=== PATIENT | female | born 1970 | race Two or more races ===

== ENCOUNTER 2024-07-20 16:24 | Emergency (ER) | payer MEDICAID, SELFPAY ==
--- NOTE | 2024-07-20 17:12 | PD.EDRME ---
Rapid Medical Screening Exam RME Arrival date/time: 07/20/24 16:24 53-year-old female with no known medical history presents to the emergency room with a chief complaint of hives to her face. Patient states this has been going on for the last 3 days and causing her a lot of itchiness. Patient is also complaining of dysuria and abdominal cramping. I have greeted and performed a focused initial assessment of this patient. A comprehensive ED assessment and evaluation of the patient, analysis of all test results, and completion of the medical decision making process will be conducted by additional ED providers. Chief Complaint: Eye Problems Vital signs reviewed by provider: Yes
[2024-07-20 17:19] VITALS: BP 132/80; PULSE 87; RESP 18; TEMP 37; O2SAT 95
[2024-07-20] MEDS: DiphenhydrAMINE ELIX 25 MG/10 ML UDC PO (17:19)
[2024-07-20] MEDS: DEXAMETHASONE SOD PHOS INJ 10 MG/ML VIAL PO (17:19)
[2024-07-20] MEDS: FAMOTIDINE 20 MG TABLET PO (17:20)
[2024-07-20 17:37] LABS: Basophils % (Auto) 0 % (0-2.5); Eosinophils # (Auto) 0.1 Thou/mm3 (0.0-0.5); Eosinophils % (Auto) 1 % (0-10); Hematocrit 40.1 % (36.0-46.0); Hemoglobin 13.4 g/dL (12.0-16.0); Immature Granulocytes % (Auto) 1 % (0-0); Immature Granulocytes Auto 0.05 Thou/mm3 (0.00-0.00); Lymphocytes # (Auto) 4.1 Thou/mm3 (1.0-4.8); Lymphocytes % (Auto) 40 % (10-50); Mean Corpuscular HGB Conc 33.4 g/dl (31.0-37.0); Mean Corpuscular Hemoglobin 30.8 pg (25.0-35.0); Mean Corpuscular Volume 92 fL (80-100); Monocytes # (Auto) 0.6 Thou/mm3 (0.0-0.8); Monocytes % (Auto) 6 % (0-12); Neutrophils # (Auto) 5.5 Thou/mm3 (1.8-7.7); Neutrophils % (Auto) 54 % (37-80); Nucleated Red Blood Cell % 0 /100 WBC (0); Platelet Count 251 Thou/mm3 (140-440); RDW Standard Deviation 43.3 fL (36.4-46.3); Red Blood Count 4.35 Miln/mm3 (4.00-5.20); White Blood Count 10.3 Thou/mm3 (3.6-11.0)
[2024-07-20 17:55] LABS: Alanine Aminotransferase 43 U/L (10-49); Albumin, Serum 4.5 gm/dL (3.5-5.0); Albumin/Globulin Ratio 1.6 (1.2-2.2); Alkaline Phosphatase 112 U/L (46-116); Anion Gap 8 (7-16); Aspartate Amino Transferase 28 U/L (0-34); BUN/Creatinine Ratio 18 Ratio (12-20); Bilirubin,Total 0.3 mg/dL (0.3-1.2); Blood Urea Nitrogen 11 mg/dL (9-23); Calcium 9.3 mg/dL (8.3-10.6); Calcium (Corrected) 9.3 mg/dL (8.5-10.1); Carbon Dioxide 27.3 mMol/L (20.0-31.0); Chloride 106 mMol/L (98-107); Creatinine (Component) 0.6 mg/dL (0.6-1.3); Globulin 2.8 gm/dL (2.3-3.5); Glucose 115 mg/dL (74-106); Osmolality,Calculated 281 (275-295); Potassium 3.9 mMol/L (3.4-5.1); Sodium 141 mMol/L (136-145); Total Protein 7.3 gm/dL (5.7-8.2); eGFR > 60 See Note
[2024-07-20 18:47] LABS: Collection Type, Urine Clean Catch
[2024-07-20 19:23] LABS: Bacteria,Urine Rare; Bilirubin,Urine Negative (Negative); Blood,Urine Negative (Negative); Clarity,Urine Clear (Clear/Hazy); Color,Urine Colorless (Lt Yel-Yel); Glucose, Urine Negative (Negative); Ketones,Urine Negative (Negative); Leukocyte Esterase,Urine Negative (Negative); Nitrite,Urine Negative (Negative); Protein,Urine Negative (Neg - Trace); RBC,Urine 2 /hpf (0-3); Squamous Epithelial Cell,Urine < 1 /hpf (0-5); Urobilinogen,Urine Negative mg/dL (0.0-1.0); WBC,Urine 1 /hpf (0-5)
[2024-07-20 19:32] VITALS: BP 137/81; PULSE 88; RESP 16; TEMP 36.8; O2SAT 98
--- NOTE | 2024-07-20 20:33 | EDNOTE_ITS ---
<Statement entered by Patricia Bejarano MD - 07/22/24 01:47> As co-signing physician, I was present and available for consult prn. I concur with the plan and care as documented by the midlevel provider. ED General RME/HPI General Chief complaint: Eye Problems Stated complaint: I FEEL SOMETHING IN MY MOUTH AND EYES Time Seen by Provider: 07/20/24 20:32 Arrival date/time: 07/20/24 16:24 CC: Itching HPI ongoing since May on the right side of the face anterior surface of the forearms and the legs. Every day it occurs intermittent, has been seen by her PCP given Benadryl Benadryl relieves the itch and a red rash . When Benadryl wears out rash and itch return. Patient denies fever chills shortness of breath difficulty breathing no other complaints RME / HPI RME / HPI narrative: 07/20/24 16:24 53-year-old female with no known medical history presents to the emergency room with a chief complaint of hives to her face. Patient states this has been going on for the last 3 days and causing her a lot of itchiness. Patient is also complaining of dysuria and abdominal cramping. I have greeted and performed a focused initial assessment of this patient. A comprehensive ED assessment and evaluation of the patient, analysis of all test results, and completion of the medical decision making process will be conducted by additional ED providers. Related Data Allergies Allergy/AdvReac Type Severity Reaction Status Date / Time No Known Allergies Allergy Verified 07/20/24 16:28 Review of Systems Review of Systems Narrative Review of Systems: GEN: No fever, no chills, no weight loss EYES: No discharge, no visual changes, no pain HEENT: No ear pain, no congestion, no sore throat PULM: No shortness of breath, no cough, no congestion CV: No chest pain, no dyspnea on exertion, no palpitations GI: No nausea, no vomiting, no diarrhea, no pain, no constipation : No frequency, no urgency, no dysuria MUSC/SKEL: No joint pain, no back pain SKIN: + rash PSYCH: No hallucinations, no depression HEME/LYMPH: No easy bleeding or bruising tendencies NEURO: No weakness, no headache Past Medical History Social History SMOKING STATUS: Never smoker ED Exam Narrative Physical exam: [General: Not in any acute distress Head normocephalic HEENT: Within acceptable limits Neck is supple nontender Chest equal chest rise nontender to palpation Respiratory: Clear to auscultation no wheezes crackles or rubs CV: Rate rhythm is regular no murmurs rubs or clicks Abdomen is distended secondary to body habitus soft nontender no masses positive bowel sounds all 4 quadrants Back: No CVA tenderness no spinous process tenderness from cervical spine thoracic and lumbar spine Skin: No rash, no hives no erythema no bulla. Skin is intact no petechiae rash induration ulceration or crepitus Extremities: Moving all extremity against resistance cap refill less than 2 seconds neurosensory intact Neuro: Awake alert oriented x3 Glascow coma 15 no focal deficits] Course Quality Measures none Orders Category Date Time Status CBC Stat Lab 07/20/24 17:24 Completed CMP [Comprehensive Metabolic Panel] Stat Lab 07/20/24 17:24 Completed UA [Urinalysis] Stat Lab 07/20/24 18:37 Completed Dexamethasone Inj [Decadron Inj] Med 07/20/24 17:12 Discontinued 10 mg PO X1 ONE DiphenhydrAMINE [Benadryl] Med 07/20/24 17:12 Discontinued 25 mg PO X1 ONE Famotidine [Pepcid] Med 07/20/24 17:12 Discontinued 20 mg PO X1 ONE Vital Signs Vital signs: Vital Signs Temperature 98.6 F 07/20/24 17:19 Pulse Rate 87 07/20/24 17:19 Respiratory Rate 18 07/20/24 17:19 Blood Pressure 132/80 H 07/20/24 17:19 Pulse Oximetry (%) 95 07/20/24 17:19 Oxygen Delivery Method Room Air 07/20/24 17:19 [facility] Patient data External records reviewed:: [facility] previous records Clinical information provided by:: patient Social determinants that could affect healthcare access:: none Patient has the following chronic illnesses:: None How is presenting disease/condition affected by chronic disease/condition?: u neffected by Evaluation data The following diagnostics were reviewed and interpreted by me:: lab results Lab and/or radiology exams considered but not ordered:: CBC shows no acute leukocytosis anemia thrombocytopenia CMP shows no acute electrolyte imbalance renal impairment transaminitis or T. bili elevation. Interpretation Summary: Not sure what the cause of this issue is that is intermittently nothing is visible at the time of this exam if the patient was given Benadryl in the waiting room prior to arrival. Patient advised to follow-up with primary care doctor and referred to climatology professor. Medications Medications considered but not ordered:: None Medication administrations:: Medication Administration History Discontinued Medications Dexamethasone Sodium Phosphate (Dexamethasone Sod Phos Inj 10 Mg/Ml Vial) 10 mg PO X1 ONE Stop: 07/20/24 17:13 Last Admin: 07/20/24 17:19 Dose: 10 mg Documented By: HENRIQUE Diphenhydramine HCl (Diphenhydramine Elix 25 Mg/10 Ml Udc) 25 mg PO X1 ONE Stop: 07/20/24 17:13 Last Admin: 07/20/24 17:19 Dose: 25 mg Documented By: HENRIQUE Famotidine (Famotidine 20 Mg Tablet) 20 mg PO X1 ONE Stop: 07/20/24 17:13 Last Admin: 07/20/24 17:20 Dose: 20 mg Documented By: HENRIQUE None Consultations Consultation(s) initiated? (list below): No Diagnosis Differential Diagnosis ED Complaint MDM: Urticaria contact dermatitis somatizations Most likely diagnosis given after review of the tests above:: Itch, rash Admission Indicated Admission indicated?: not indicated Explain why admission is indicated or not indicated:: Stable for outpatient follow-up Admission Request Was there a request for admission?: No Disposition Plan Disposition Plan: Discharge Discharge Attestation Discharge Attestation: The patient and all family members were given an opportunity to ask questions and understood the discharge instructions. Discharge instructions specifically effects, indications for sooner follow up or return to the emergency department, and the expected course of current diagnosis. Patient condition: Stable Medical Decision Making Differential Diagnosis Differential Diagnosis: Urticaria contact dermatitis somatizations Lab Data 07/20/24 17:24 07/20/24 17:24 Labs: Lab Results 07/20/24 07/20/24 Range/Units 17:24 18:37 WBC 10.3 (3.6-11.0) Thou/mm3 RBC 4.35 (4.00-5.20) Miln/mm3 Hgb 13.4 (12.0-16.0) g/dL Hct 40.1 (36.0-46.0) % MCV 92 (80-100) fL MCH 30.8 (25.0-35.0) pg MCHC 33.4 (31.0-37.0) g/dl RDW Std Deviation 43.3 (36.4-46.3) fL Plt Count 251 (140-440) Thou/mm3 Neut % (Auto) 54 (37-80) % Lymph % (Auto) 40 (10-50) % [place] % (Auto) 6 (0-12) % Eos % (Auto) 1 (0-10) % Baso % (Auto) 0 (0-2.5) % Neut # (Auto) 5.5 (1.8-7.7) Thou/mm3 Lymph # (Auto) 4.1 (1.0-4.8) Thou/mm3 [place] # (Auto) 0.6 (0.0-0.8) Thou/mm3 Eos # (Auto) 0.1 (0.0-0.5) Thou/mm3 Baso # (Auto) 0.0 (0.0-0.2) Thou/mm3 Immature Gran # (Auto) 0.05 H (0.00-0.00) Thou/mm3 Absolute Nucleated RBC 0.00 (0.00-0.00) Thou/mm3 Immature Gran % 1 H (0-0) % Nucleated RBC % 0 (0) /100 WBC Sodium 141 (136-145) mMol/L Potassium 3.9 (3.4-5.1) mMol/L Chloride 106 (98-107) mMol/L Carbon Dioxide 27.3 (20.0-31.0) mMol/L Anion Gap 8 (7-16) BUN 11 (9-23) mg/dL Creatinine 0.6 (0.6-1.3) mg/dL Estim Creat Clear Calc Not Performed. eGFR > 60 (60 - ) See Note BUN/Creatinine Ratio 18 (12-20) Ratio Glucose 115 H (74-106) mg/dL Calculated Osmolality 281 (275-295) Calcium 9.3 (8.3-10.6) mg/dL Corrected Calcium 9.3 (8.5-10.1) mg/dL Total Bilirubin 0.3 (0.3-1.2) mg/dL AST 28 (0-34) U/L ALT 43 (10-49) U/L Alkaline Phosphatase 112 (46-116) U/L Total Protein 7.3 (5.7-8.2) gm/dL Albumin 4.5 (3.5-5.0) gm/dL Globulin 2.8 (2.3-3.5) gm/dL Albumin/Globulin Ratio 1.6 (1.2-2.2) Ur Collection Type Clean Catch Urine Color Colorless A (Lt Yel-Yel) Urine Clarity Clear (Clear/Hazy) Urine pH 6.0 (5.0-7.0) Ur Specific [place] 1.010 (1.001-1.035) Urine Protein Negative (Neg - Trace) Urine Glucose (UA) Negative (Negative) Urine Ketones Negative (Negative) Urine Blood Negative (Negative) Urine Nitrite Negative (Negative) Urine Bilirubin Negative (Negative) Urine Urobilinogen (Auto) Negative (0.0-1.0) mg/dL Ur Leukocyte Esterase Negative (Negative) Urine RBC 2 (0-3) /hpf Urine WBC 1 (0-5) /hpf Ur Squamous Epith Cells < 1 (0-5) /hpf Urine Bacteria Rare (None) Discharge Plan Plan Patient Disposition: HOME (Self Care) Patient condition on transfer: Stable Prescriptions/Referrals Referrals: Justin Messer MD [Physician] - In 1 week No Primary/Family,Physician [Primary Care Provider] - In 1 week Problem List Clinical Impression: Itch Patient/Caregiver Discharge Instructions Print Language: Uzbek Stand Alone Forms: Maria Teresa Award Info., Work/School Release, Patient Portal Info Letter PA/FINANCIAL ADVISER Supervising Physician PA/SEAN Supervising Physician: Philipp Polanco ENP
== END 2024-07-20 20:47 | disposition home or self-care (01) ==
PROVIDERS: Nurse Practitioner Family; Emergency Provider Emergency Medicine
DX: L29.9 Pruritus, unspecified (principal)
CPT/HCPCS: 36415; 80053; 81001; 85025; 99283; J1100; A9270